=== PATIENT | female | born 1960 | race American Indian/Alaskan Native ===

== ENCOUNTER 2018-03-09 08:51 | Outpatient (CLI) | payer OTHER ==
--- NOTE | 2018-03-09 10:59 | XRay Report ---
BILATERAL KNEES, 2 VIEWS History: Disability exam, bilateral knee pain. Findings: Normal bone mineralization. No evidence for fracture. The joint space is within normal limits. No degenerative changes are identified. An approximate 3 cm long lesion is identified in the proximal shaft of the right fibula. Characteristics are most consistent with an osteochondroma. The soft tissues are normal. Impression: Essentially normal x-ray of the bilateral knees. 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 This is probably an incidental finding.
== END 2018-03-09 08:52 | disposition home or self-care (01) ==
LOC: XRAY 08:51
PROVIDERS: ATTEND Internal Medicine
DX: M25.562 Pain in left knee (principal); M25.561 Pain in right knee; M25.461 Effusion, right knee; M25.462 Effusion, left knee; Z88.2 Allergy status to sulfonamides

== ENCOUNTER 2020-04-16 15:57 | Outpatient (CLI) | payer BC ==
--- NOTE | 2020-04-17 11:35 | Mammography Report ---
DIGITAL SCREENING MAMMOGRAM WITH CAD, 04/17/2020 CLINICAL INFORMATION / INDICATION: Routine screening mammography. SCREENING MAMMO TECHNIQUE: Digital bilateral 2D mammography was obtained in the craniocaudal and mediolateral obliqu e projections. This examination was interpreted with the benefit of Computer-Aided Detection analysis . COMPARISON: 10/01/2018 and 01/29/2016 FINDINGS: Breast Density: There are scattered areas of fibroglandular density. No dominant mass, suspicious calcifications, or architectural distortion in either breast. IMPRESSION: No mammographic evidence of malignancy. Follow up recommendation: Routine yearly BI-RADS Category 1: Negative. A "normal" or negative report should not discourage follow up or biopsy of a clinically significant f inding. A written summary of these findings will be mailed to the patient. The patient will be entered into a mammography reporting system which will generate a reminder letter for the patient's next appointmen t at the appropriate interval. The [employer] recommends yearly mammograms starting at age 40 and continuing as l eliza as a woman is in good health. Breast MRI is recommended for women with an approximate 20-25% or greater lifetime risk of breast cancer, including women with a strong family history of breast or ova hermes cancer or who have been treated for Hodgkin's disease. Signer Name: Lance Hull MD Signed: 04/17/2020 11:31 AM Workstation Name: [email or web address]
== END 2020-04-16 15:58 | disposition home or self-care (01) ==
LOC: SPVWC 15:57
PROVIDERS: ATTEND Family Medicine Adult Medicine
DX: Z12.31 Encounter for screening mammogram for malignant neoplasm of breast (principal)
CPT/HCPCS: 77067

== ENCOUNTER 2021-06-01 09:49 | Outpatient (CLI) | payer BC ==
--- NOTE | 2021-06-01 16:31 | Mammography Report ---
DIGITAL SCREENING MAMMOGRAM WITH CAD, 06/01/2021 CLINICAL INFORMATION / INDICATION: Routine screening TECHNIQUE: Digital bilateral 2D mammography was obtained in the craniocaudal and mediolateral obliqu e projections. This examination was interpreted with the benefit of Computer-Aided Detection analysis . COMPARISON: 04/16/2020 FINDINGS: Breast Density: There are scattered areas of fibroglandular density. No dominant mass, suspicious calcifications, or architectural distortion in the left breast. In the upper outer quadrant of the right breast, mid depth, indeterminate increasing grouped microcal cifications are seen. IMPRESSION: Grouped microcalcifications on the right Follow up recommendation: Right magnification views BI-RADS Category 0: INCOMPLETE. Needs additional imaging evaluation and/or prior mammograms for shobha rison. A "normal" or negative report should not discourage follow up or biopsy of a clinically significant f inding. A written summary of these findings will be mailed to the patient. The patient will be entered into a mammography reporting system which will generate a reminder letter for the patient's next appointmen t at the appropriate interval. The [employer] recommends yearly mammograms starting at age 40 and continuing as l eliza as a woman is in good health. Breast MRI is recommended for women with an approximate 20-25% or greater lifetime risk of breast cancer, including women with a strong family history of breast or ova hermes cancer or who have been treated for Hodgkin's disease. Signer Name: Reyes Pa MD Signed: 06/01/2021 4:27 PM Workstation Name: [email or web address]
== END 2021-06-01 09:50 | disposition home or self-care (01) ==
LOC: MAMMO 09:49
PROVIDERS: ATTEND Family Medicine Adult Medicine
DX: Z12.31 Encounter for screening mammogram for malignant neoplasm of breast (principal); N64.89 Other specified disorders of breast
CPT/HCPCS: 77067

== ENCOUNTER 2021-07-20 12:51 | Outpatient (CLI) | payer BC ==
--- NOTE | 2021-07-20 13:32 | Mammography Report ---
DIGITAL DIAGNOSTIC MAMMOGRAM, -- 07/20/2021 INDICATION: Follow-up of indeterminate right breast calcifications. TECHNIQUE: Digital right mammographic imaging was performed. Magnification views were obtained. COMPARISON: Screening mammograms dated 06/01/2021 and 04/16/2020 FINDINGS: Breast Density: There are scattered areas of fibroglandular density. A group of round/ovoid calcifications of varying size is seen in the upper outer right breast middle depth measuring 3 mm without an associated mass, architectural distortion or asymmetry. IMPRESSION: Suspicious right breast calcifications as above have increased in number since 2019. Stereotactic bio psy is recommended for further evaluation. Recommended Follow-Up: Biopsy BI-RADS Category 4: SUSPICIOUS FOR MALIGNANCY. A "normal" or negative report should not discourage follow up or biopsy of a clinically significant f inding. A written summary of these findings will be mailed to the patient. The patient will be entered into a mammography reporting system which will generate a reminder letter for the patient's next appointmen t at the appropriate interval. According to the [employer], yearly mammograms are recommended starting at age 40 and continuing as long as a woman is in good health. Breast MRI is recommended for women with an terra roximately 20-25% or greater lifetime risk of breast cancer, including women with a strong family his tory of breast or ovarian cancer and women who have been treated for Hodgkin's disease. Signer Name: Tavo Ferrer MD Signed: 07/20/2021 1:28 PM Workstation Name: [email or web address] [id number]
== END 2021-07-20 12:52 | disposition home or self-care (01) ==
LOC: SPVWC 12:51
PROVIDERS: ATTEND Family Medicine Adult Medicine
DX: R92.2 Inconclusive mammogram (principal)

== ENCOUNTER 2021-09-21 09:43 | Outpatient (CLI) | payer BC, OTHER ==
--- NOTE | 2021-09-21 10:25 | XRay Report ---
LUMBOSACRAL SPINE 3 VIEWS INDICATION: BACK PAIN. COMPARISON: None. IMPRESSION: Normal alignment. Anterior fusion changes with disc spacer at L3-4. Posterior fusion ch anges at L4-5. The hardware appears well applied. Mild degenerative changes are noted at L3-4 and L4- 5. The remaining levels are within normal limits. The SI joints are unremarkable. No acute osseous o r soft tissue abnormality. Signer Name: Mohsen Saenz Jr, MD Signed: 09/21/2021 10:21 AM Workstation Name: [id number]
== END 2021-09-21 09:44 | disposition home or self-care (01) ==
LOC: XRAY 09:43
PROVIDERS: ATTEND Internal Medicine
DX: M51.36 Other intervertebral disc degeneration, lumbar region (principal); M43.26 Fusion of spine, lumbar region
CPT/HCPCS: 72100